=== PATIENT | female | born 1980 | race Caucasian/White ===

== ENCOUNTER → 2018-05-06 | Outpatient (CLI) | payer BC ==
[~2018-05-06] MED LIST: REGADENOSON 0.4 MG/5 ML DISP.SYRIN. IV ONE
--- NOTE | 2018-05-06 13:04 | PCVCIMAG ---
APPROVED REPORT Study performed: 05/06/2018 11:32:44 EXAM: Comprehensive 2D, Doppler, and color-flow Echocardiogram Patient Location: Echo lab Status: routine BSA: 1.93 HR: 79 bpmBP: 140/100 mmHg Rhythm: NSR Other Information Study Quality: Good Risk Factors: Cardiac Risk Factors: HTN, Hyperlipidemia, Smoking, FHX of CAD Indications Chest Pain Hypertension/HDD Hyperlipidemia, Smoking, Strong Family history of CAD. 2D Dimensions LVEF(%): 43.30 (>50%) IVSd: 11.03 (7-11mm)LVOT Diam: 21.30 (18-24mm) LVDd: 40.85 mm PWd: 11.96 (7-11mm)Ascending Ao: 33.22 (22-36mm) LVDs: 32.24 (25-40mm) Left Atrium: 33.91 (27-40mm) Aortic Root: 26.15 mm LV Single Plane 2CH: 51.35 %Hope's LVEF: 43.30 % Volumes Left Atrial Volume (Systole) Single Plane 4CH: 35.17 mLSingle Plane 2CH: 28.12 mL LA ESV Index: 18.00 mL/m2 Aortic Valve AoV Peak Manfred.: 1.39 m/s AO Peak Gr.: 7.70 mmHgLVOT Max P.50 mmHg LVOT Max V: 1.17 m/s TONI Vmax: 3.01 cm2 Mitral Valve E/A Ratio: 0.9 MV Decel. Time: 163.62 ms MV E Max Manfred.: 0.74 m/s MV A Manfred.: 0.84 m/s IVRT: 96.89 ms TDI E/Lateral E': 10.57E/Medial E': 12.33 Medial E' Manfred.: 0.06 m/s Lateral E' Manfred.: 0.07 m/s Pulmonary Valve PV Peak Gr.: 2.83 mmHg Pulmonary Vein P Vein S: 0.69 m/sP Vein A: 0.39 m/s P Vein D: 0.59 m/sP Vein A Dur.: 90.0 msec P Vein S/D Ratio: 1.17 Left Ventricle The left ventricle is normal size. There is normal LV segmental wall motion. There is normal left ventricular wall thickness. Left ventricular systolic function is normal. The left ventricular ejection fraction is within the normal range. LVEF is 55-60%. The left ventricular diastolic function is normal. Right Ventricle The right ventricle is normal size. The right ventricular systolic function is normal. Atria The left atrium size is normal. The right atrium size is normal. Aortic Valve The aortic valve is normal in structure. No aortic regurgitation is present. There is no aortic valvular stenosis. Mitral Valve The mitral valve is normal in structure. There is no mitral valve regurgitation noted. No evidence of mitral valve stenosis. Tricuspid Valve The tricuspid valve is normal in structure. There is no tricuspid valve regurgitation noted. Pulmonic Valve The pulmonary valve is normal in structure. There is no pulmonic valvular regurgitation. Great Vessels The aortic root is normal in size. IVC is normal in size and collapses with >50% inspiration Pericardium There is no pericardial effusion. <Conclusion> 1. Normal echocardioagram with Doppler. EF 60% 2. Valvular disease was absent. No significant regurgitant or stenotic lesions 3. No pericardial effusion
--- NOTE | 2018-05-07 09:42 | PCVCIMAG ---
APPROVED REPORT Imaging Protocol: Rest Tc-99m/Stress Tc-99m 1 day Study performed: 05/06/2018 12:57:46 Indication: Chest pain Patient Location: Out-Patient Stress Nurse: MILO Sams Tech:Raphael Ng NMENZOB Ht: 5 ft 3 in Wt: 219 lbs BSA: 2.01 m2 HR: 95 bpm BP: 121/82 mmHg BMI: 38.7 Medical History Medical History: Hyperlipidemia, HTN, Smoking, Family Hx of CAD Medications: Atorvastatin, Lisinopril Allergies: Morphine, Sulfa Exercise History: Physically active Physical Disabilities: Multiple back surgeries Resting Data Rest SPECT myocardial perfusion imaging was performed in supine position 45 minutes following the intravenous injection of 18 mCi of Tc-99m Sestamibi. Time of rest injection: 1225 Date: 05/06/2018 Administration Route: IV Administration Site: Right AC Pharmacologic Stress Pharmacologic stress test was performed by injecting Regadenoson 0.4 mg IV push over 10-15 seconds immediately followed by the intravenous injection of 48 mCi of Tc-99m Sestamibi. Time of stress injection: 1330 Date: 05/06/2018 Administration Route: IV Administration Site: Right AC The images were gated to evaluate regional wall motion and calculate left ventricular ejection fraction. Stress Test Details Stress Test: Pharmacologic stress was paired with low level exercise. Reason for pharmacologic stress test: Back surgery. HRMax Heart Rate (APMHR): 182 bpm Resting HR: 95 bpmTarget HR (85% APMHR): 154 bpm Max HR Achieved: 136 bpm % of APMHR: 74 Recovery HR: 101 bpm BP Resting BP: 121/82 mmHg Recovery BP: 136/87 mmHg ECG Resting ECG: Sinus Rhythm Stress ECG: Sinus Tachycardia Maximum ST Deviation: 0 mm Arrhythmia: None Recovery ECG: Sinus Tachycardia Recovery ST Change: None Recovery ST Deviation: 0 mm Recovery Arrhythmia: None Clinical Reason for Termination: Completed protocol Stress Symptoms: Dyspnea Exercise duration: 4 min 00 sec Exercise capacity: 1.6 METs Symptoms resolved during recovery. Stress ECG Conclusion ECG: Non-ischemic Clinical: Non-ischemic Study Quality Study: Good Study Data Post stress, the left ventricular ejection was 68%.. SSS: 3 SRS: 15 SDS: 0 TID = 0.91. Perfusion No evidence of stress induced ischemia or prior myocardial infarction. Wall Motion Normal left ventricular size and function with no regional wall motion abnormalities. Nuclear Conclusion No evidence of stress induced ischemia or prior myocardial infarction. Normal left ventricular size and function with no regional wall motion abnormalities. Post stress, the left ventricular ejection was 68%. No prior study available for comparison. Interpreted by: Jeffry Bowden MD Electronically Approved: 05/06/2018 17:55:21 <Conclusion> ECG: Non-ischemic Clinical: Non-ischemic
== END | disposition home or self-care (01) ==
LOC: PCVCIMAG 13:06
PROVIDERS: ATTEND Internal Medicine
DX: I10 Essential (primary) hypertension (principal); E78.5 Hyperlipidemia, unspecified; F17.200 Nicotine dependence, unspecified, uncomplicated; Z82.49 Family history of ischemic heart disease and other diseases of the circulatory system
CPT/HCPCS: 78452; 93017; 93306; A9500; J2785